=== PATIENT | male | born 1985 | race Asian ===

== ENCOUNTER 2016-11-30 23:32 | Emergency (ER) | payer SELFPAY ==
[2016-12-01 04:10] VITALS: BP 143/94
== END 2016-12-01 04:19 | disposition home or self-care (01) ==
LOC: ER 23:33
DX: T40.7X1A Poisoning by cannabis (derivatives), accidental (unintentional), initial encounter (principal); R41.82 Altered mental status, unspecified; F41.9 Anxiety disorder, unspecified; Z98.890 Other specified postprocedural states; Y92.59 Other trade areas as the place of occurrence of the external cause
CPT/HCPCS: 70450; 99284